=== PATIENT | female | born 1950 | race American Indian/Alaskan Native ===

== ENCOUNTER 2018-03-29 11:23 | Inpatient (IN) ==
--- NOTE | 2018-03-29 11:46 | Emergency Department Note ---
SOB HPI - General Chief Complaint: Shortness of Breath/Dyspnea Stated Complaint: SOB Time Seen by Provider: 03/29/18 11:24 Source: patient Mode of arrival: ambulatory Limitations: no limitations - History of Present Illness 67-year-old female presents with shortness of breath 1 month worsening in the last week. She is also had nausea and vomiting. She had diarrhea for a few days once or twice a day but has not had a bowel movement since Monday. These are dark stools because she takes iron. She has not been able to take her medications since around Monday because she gets nauseated and vomits. She states she has not been able to do anything because she is very short of breath. She states she has pain all over. She is diabetic. She apparently has a history of CHF when she was admitted here in the past. She has fever and chills that are subjective. - Related Data Home Medications Medication Instructions Recorded Confirmed Ergocalciferol (Vitamin D2) 50,000 unit PO MONTHLY 03/04/16 03/29/18 [Vitamin D2] Ferrous Sulfate 2 tablet PO BID 03/04/16 03/29/18 glipizide ER 5 mg tablet, extended 5 mg PO QDAY 04/18/16 03/29/18 release 24 hr lisinopril 5 mg tablet 5 mg PO QDAY 04/18/16 03/29/18 carvedilol 3.125 mg tablet 3.125 mg PO BID 09/13/16 03/29/18 gabapentin 300 mg capsule 300 mg PO TID 30 Days #270 09/13/16 03/29/18 insulin detemir (U-100) 100 46 unit SUB-Q QDAY ml 11/20/17 03/29/18 unit/mL subcutaneous solution insulin lispro (U-100) 100 unit/mL See Label Instructions SUB-Q 11/20/17 subcutaneous solution .COMPLEX Cetirizine [ZyrTEC] 10 mg PO DAILY 03/29/18 03/29/18 Magnesium Oxide 420 mg PO DAILY 03/29/18 03/29/18 Mometasone/Formoterol [Dulera 200 2 puff IH BID 03/29/18 03/29/18 Mcg/5 Mcg Inhaler] Omeprazole 20 mg PO DAILY 03/29/18 03/29/18 Sennosides [Senna] 8.6 mg PO DAILYP PRN 03/29/18 03/29/18 Topiramate [Topamax] 25 mg PO BID 03/29/18 03/29/18 metFORMIN [Glucophage] 500 mg PO BID 03/29/18 03/29/18 Previous Rx's Medication Instructions Recorded Accu-Chek 1 each FS ACHS strip 03/07/16 Acetaminophen [Tylenol] 650 mg PO Q6HP PRN #0 tab 03/07/16 Aspirin 81 mg PO DAILY tab.chew 03/07/16 Folic Acid/Vitamin B Comp W-C 1 tab PO DAILY tab 03/07/16 [Diatx] Nortriptyline [Pamelor] 20 mg PO HS cap 03/07/16 Simvastatin [Zocor] 20 mg PO HS tab 03/07/16 Allergies Allergy/AdvReac Type Severity Reaction Status Date / Time zolmitriptan [From Zomig] AdvReac Intermediate Vomiting Verified 03/29/18 11:23 Review of Systems All systems ED: reviewed and negative except as stated. Past Medical History - Past Medical History Medical history: Reports: CHF, DM, GERD, hyperlipidemia, hypertension, renal disease Psychiatric history: Reports: no psych history BUSINESS PARTNER history: Reports: non-contributory Surgical history ED: Reports: tonsillectomy Family history: Reports: non-contributory - Social History smoking status: Never smoker Physical Exam Limitations: no limitations General appearance: alert, in no apparent distress Head: atraumatic Eye: Present: normal appearance. Absent: conjunctival injection Neck: Present: normal inspection, full ROM Chest: Present: normal inspection, symmetric chest wall rise Respiratory: Present: normal lung sounds bilaterally Cardiovascular: Present: tachycardia, normal heart sounds Abdominal: Present: soft, tenderness, normal bowel sounds. Absent: distention, guarding, rebound, rigidity Abdominal tenderness: Present: diffuse, mild Extremities: Present: normal inspection, full ROM. Absent: pedal edema Neurological: Present: alert, oriented X3 Psychiatric: Present: normal affect, normal mood Skin: Present: warm, dry, intact Course Vital Signs Temperature 98.2 F 03/29/18 11:23 Pulse Rate 99 H 03/29/18 11:23 Respiratory Rate 20 03/29/18 11:23 Blood Pressure 149/95 03/29/18 11:23 Pulse Oximetry (%) 94 03/29/18 11:23 Temperature 98.2 F 03/29/18 11:23 Pulse Rate 93 H 03/29/18 13:44 Respiratory Rate 20 03/29/18 13:44 Blood Pressure 133/63 03/29/18 13:44 Pulse Oximetry (%) 97 03/29/18 13:44 Shortness of Breath/Dyspnea - MDM Narrative Medical decision making narrative: Urine shows positive nitrates moderate leukocytes and moderate blood. She also has been given insulin and she was not able to eat because she is very nauseated. She ate a few bites of her food. Due to elevated white count, elevated pro-calcitonin, and poor p.o. intake the patient will be admitted. - Lab Data Lab results reviewed: Yes I reviewed the patient's lab results. Result diagrams: 03/29/18 11:35 03/29/18 11:35 Lab Results 03/29/18 03/29/18 03/29/18 Range/Units 11:31 11:35 11:35 WBC 15.6 H (4.5-11.0) K/mcL RBC 4.52 (4.00-5.20) M/mcL Hgb 12.3 (12.0-15.0) g/dL Hct 41.0 (36.0-48.0) % MCV 90.8 (80.0-100.0) fL MCH 27.1 (26.0-34.0) pg MCHC 29.9 L (31.0-36.0) g/dL RDW 13.5 (11.5-14.5) % Plt Count 342 (140-440) K/mcL MPV 8.2 (7.4-10.4) fL Gran % 89.8 H (38.0-78.0) % Lymph % (Auto) 5.7 L (15.5-49.0) % [place] % (Auto) 4.1 (1.0-12.0) % Eos % (Auto) 0.3 (0.0-7.0) % Baso % (Auto) 0.1 (0.0-2.0) % Gran # 14.1 H (1.8-8.0) K/mcL Lymph # (Auto) 0.9 L (1.5-4.8) K/mcL [place] # (Auto) 0.6 (0.1-0.9) K/mcL Eos # (Auto) 0 (0.0-0.7) K/mcL Baso # (Auto) 0 (0.0-0.3) K/mcL VBG Lactic Acid (0.5-2.2) mmol/L Sodium 134 (133-145) mmol/L Potassium 4.6 (3.3-5.1) mmol/L Chloride 95 L (96-108) mmol/L Carbon Dioxide 22 (22-30) mmol/L Anion Gap 17.0 H (8-16) BUN 19 (8-23) mg/dl Creatinine 1.4 H (0.6-1.1) mg/dl GFR Calculation 39 Glucose 375 H (70-105) mg/dL Calcium 8.9 (8.6-10.4) mg/dl Total Bilirubin 1.3 H (0.0-1.0) mg/dL AST 12 (0-37) U/l ALT 11 (0-40) U/l Alkaline Phosphatase 145 H (39-117) U/L Troponin T (0-0.03) ng/ml NT-Pro-B Natriuret Pep 1210.0 H (0-125) pg/ml Total Protein 8.3 (5.9-8.4) gm/dL Albumin 3.8 (3.2-5.2) gm/dL Globulin 4.5 H (2.2-3.7) gm/dL Albumin/Globulin Ratio 0.8 L (1.0-2.3) Procalcitonin 2.40 (<0.10) ng/mL Urine Color Urine Appearance Urine pH (5.0-9.0) Ur Specific [place] (1.000-1.035) Urine Protein (NEG) mg/dL Urine Glucose (UA) (NEG) mg/dL Urine Ketones (NEG) mg/dL Urine Occult Blood (<0.03) mg/dL Urine Nitrate (NEG) Urine Bilirubin (NEG) mg/dL Urine Urobilinogen (NEG) mg/dL Ur Leukocyte Esterase (NEG) /uL Urine RBC (0-1) /hpf Urine WBC (0-4) /hpf Ur Squamous Epith Cells (0-4) /hpf Urine Bacteria (0) /hpf Ur Culture Indicated? 03/29/18 03/29/18 03/29/18 Range/Units 11:35 12:50 13:16 WBC (4.5-11.0) K/mcL RBC (4.00-5.20) M/mcL Hgb (12.0-15.0) g/dL Hct (36.0-48.0) % MCV (80.0-100.0) fL MCH (26.0-34.0) pg MCHC (31.0-36.0) g/dL RDW (11.5-14.5) % Plt Count (140-440) K/mcL MPV (7.4-10.4) fL Gran % (38.0-78.0) % Lymph % (Auto) (15.5-49.0) % [place] % (Auto) (1.0-12.0) % Eos % (Auto) (0.0-7.0) % Baso % (Auto) (0.0-2.0) % Gran # (1.8-8.0) K/mcL Lymph # (Auto) (1.5-4.8) K/mcL [place] # (Auto) (0.1-0.9) K/mcL Eos # (Auto) (0.0-0.7) K/mcL Baso # (Auto) (0.0-0.3) K/mcL VBG Lactic Acid 1.2 (0.5-2.2) mmol/L Sodium (133-145) mmol/L Potassium (3.3-5.1) mmol/L Chloride (96-108) mmol/L Carbon Dioxide (22-30) mmol/L Anion Gap (8-16) BUN (8-23) mg/dl Creatinine (0.6-1.1) mg/dl GFR Calculation Glucose (70-105) mg/dL Calcium (8.6-10.4) mg/dl Total Bilirubin (0.0-1.0) mg/dL AST (0-37) U/l ALT (0-40) U/l Alkaline Phosphatase (39-117) U/L Troponin T < 0.01 (0-0.03) ng/ml NT-Pro-B Natriuret Pep (0-125) pg/ml Total Protein (5.9-8.4) gm/dL Albumin (3.2-5.2) gm/dL Globulin (2.2-3.7) gm/dL Albumin/Globulin Ratio (1.0-2.3) Procalcitonin (<0.10) ng/mL Urine Color Yellow Urine Appearance Cloudy Urine pH 5.0 (5.0-9.0) Ur Specific [place] 1.021 (1.000-1.035) Urine Protein 100 A (NEG) mg/dL Urine Glucose (UA) >=500 A (NEG) mg/dL Urine Ketones 5/tr A (NEG) mg/dL Urine Occult Blood 0.03 A (<0.03) mg/dL Urine Nitrate Neg (NEG) Urine Bilirubin Neg (NEG) mg/dL Urine Urobilinogen 2.0 A (NEG) mg/dL Ur Leukocyte Esterase 250 A (NEG) /uL Urine RBC 7 H (0-1) /hpf Urine WBC > 182 H (0-4) /hpf Ur Squamous Epith Cells 2 (0-4) /hpf Urine Bacteria Few A (0) /hpf Ur Culture Indicated? Yes - Radiology Data Radiology results reviewed: Yes I reviewed the patient's radiology results. Negative chest - EKG Data EKG attestation: Yes I reviewed and interpreted this EKG. EKG results narrative: No evidence of acute abnormality Disposition Pt seen by CIRCULATION SUPERVISOR/PA only: No Clinical Impression: UTI (urinary tract infection), Vomiting Disposition: Xfer As Outpt/Obs ([facility]) Condition: Fair Referrals: Nicholas Albert MD [Primary Care Provider] -
--- NOTE | 2018-03-29 11:58 | XRay Report ---
CLINICAL INFORMATION: Cough and shortness of breath COMPARISON: 10/19/2017 FINDINGS: The heart size, mediastinum and pulmonary vessels are unremarkable. The lungs are clear. There are no effusions. The bones and soft tissues are within normal limits. IMPRESSION: Normal chest. Interpreted and Authenticated by: Rayshawn Guadalupe 03/29/18
[2018-03-29 12:02] LABS: Basophils # (Auto) 0 K/mcL (0.0-0.3); Basophils % (Auto) 0.1 % (0.0-2.0); Eosinophils # (Auto) 0 K/mcL (0.0-0.7); Eosinophils % (Auto) 0.3 % (0.0-7.0); Granulocytes % (Auto) 89.8 % (38.0-78.0); Lymphocytes # (Auto) 0.9 K/mcL (1.5-4.8); Lymphocytes % (Auto) 5.7 % (15.5-49.0); Mean Cell Volume 90.8 fL (80.0-100.0); Mean Corpuscular HGB Conc 29.9 g/dL (31.0-36.0); Mean Corpuscular Hemoglobin 27.1 pg (26.0-34.0); Monocytes # (Auto) 0.6 K/mcL (0.1-0.9); Monocytes % (Auto) 4.1 % (1.0-12.0); Platelet Count 342 K/mcL (140-440); RBC 4.52 M/mcL (4.00-5.20); Red Cell Distribution Width 13.5 % (11.5-14.5)
[2018-03-29] MEDS ORDERED: METOCLOPRAMIDE 10 MG/2 ML VIAL IV ONE (12:25)
[2018-03-29 12:27] LABS: ALT/SGPT 11 U/l (0-40); Albumin 3.8 gm/dL (3.2-5.2); Albumin/Globulin Ratio 0.8 (1.0-2.3); Alkaline Phosphatase 145 U/L (39-117); Blood Urea Nitrogen 19 mg/dl (8-23)
[2018-03-29] MEDS ORDERED: INSULIN REGULAR, HUMAN 1 UNIT/0.01 ML UNIT SQ ONE ×2 (12:42→13:07)
[2018-03-29] MEDS ORDERED: ONDANSETRON 4 MG/2 ML VIAL IV ONE (13:07)
[2018-03-29] MEDS ORDERED: cefTRIAXone 1 GM VIAL IV ONE (13:07)
[2018-03-29] MEDS ORDERED: 0.9 % SODIUM CHLORIDE 250 ML IV ONE (13:28)
[2018-03-29 14:02] LABS: Appearance,Urine CLOUDY; Bacteria,Urine FEW /hpf (0); Bilirubin,Urine NEG (NEG); Color,Urine YELLOW; Glucose,Urine (UA) >=500 mg/dL (NEG); Leukocyte Esterase,Urine 250 /uL (NEG); Protein,Urine 100 mg/dL (NEG); Specific Gravity,Urine 1.021 (1.000-1.035); Urine Blood 0.03 mg/dL (<0.03); Urine RBC 7 /hpf (0-1); Urine Squamous Epithelial Cell 2 /hpf (0-4); Urine WBC > 182 /hpf (0-4)
--- NOTE | 2018-03-29 15:29 | Internal Med History&Physical ---
Medical - H&P: HPI Patient information: Note initiated : 03/29/18 at 3:26 pm Service Date, if different from initiated Date: [] Patient: Lauren Maria a 67 y/o F admitted on for Shortness of breath. Chief Complaint: Dyspnea, nausea, vomiting, fever, chills History of present illness: Ms. Maria is a 67 year old F with a history of type 2 diabetes, CK D, hypercholesterolemia, congestive heart failure who presents with dyspnea as well as nausea, vomiting and abdominal pain. Patient reports for about the last month she's been having some trouble breathing. There has worsened since Monday. In addition during this time she' s had nausea with vomiting. She is throwing up her medications as she takes them, she is unable to keep food down. She's generally been able to keep down water and low but of other liquids. During this time she's felt feverish, has also had cold sweats. She is under several blankets, even though it was quite warm outside in order to stave off chills yesterday. The patient comes to the emergency department. Evaluation reveals white count 15,000, she had a pulse in the 90s, times respiratory rate of 33. Found to have significant pyuria and bacteriuria and is being admitted for treatment of acute cystitis. She meets criteria for sepsis with systemic inflammatory response syndrome and known infection. Her lactate is normal, this is not severe sepsis. Patient's dyspnea is noted been going on for about a month. She apparently has a diagnosis of congestive heart failure and had an echocardiogram done at [place] several years ago. Unknown what her ejection fraction is. Her PCP is arranging an echocardiogram currently. Patient states she was recently diagnosed with allergies about 3 weeks ago, it was thought that might explain her shortness of breath. She's had a cough, last few days it's been productive sputum, prior to that is nonproductive. For the last few months, she's been getting short of breath when she lays down, is now sleeping on 3 pillows, when she used to sleep on 1. She's noted some very mild lower extremity edema. She' s no history of coronary disease, as had no chest pains. She has had some pain in the left neck which radiates across the clavicular area down into her right chest as well as from her left ear down crossed her neck into her back. These do not appear to be exertionally related. 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 Her mother and daughter both had diabetes and ESRD and were on dialysis, both of whom are . Social history: She has never smoked and does not consume alcohol. Medical - H&P: Meds Home Medications Medication Instructions Recorded Confirmed Type Ergocalciferol (Vitamin D2) 50,000 unit PO MONTHLY 03/04/16 03/29/18 History [Vitamin D2] Ferrous Sulfate 2 tablet PO BID 03/04/16 03/29/18 History Accu-Chek 1 each FS ACHS strip 03/07/16 03/29/18 Rx Acetaminophen [Tylenol] 650 mg PO Q6HP PRN #0 tab 03/07/16 03/29/18 Rx Aspirin 81 mg PO DAILY tab.chew 03/07/16 03/29/18 Rx Folic Acid/Vitamin B Comp W-C 1 tab PO DAILY tab 03/07/16 03/29/18 Rx [Diatx] Nortriptyline [Pamelor] 20 mg PO HS cap 03/07/16 03/29/18 Rx Simvastatin [Zocor] 20 mg PO HS tab 03/07/16 03/29/18 Rx glipizide ER 5 mg tablet, extended 5 mg PO QDAY 04/18/16 03/29/18 History release 24 hr lisinopril 5 mg tablet 5 mg PO QDAY 04/18/16 03/29/18 History carvedilol 3.125 mg tablet 3.125 mg PO BID 09/13/16 03/29/18 History gabapentin 300 mg capsule 300 mg PO TID 30 Days #270 09/13/16 03/29/18 History insulin detemir (U-100) 100 46 unit SUB-Q QDAY ml 11/20/17 03/29/18 History unit/mL subcutaneous solution Cetirizine [ZyrTEC] 10 mg PO DAILY 03/29/18 03/29/18 History Insulin Aspart [Novolog Flexpen] 16 unit SQ AC 03/29/18 03/29/18 History Insulin Aspart [Novolog Flexpen] 20 unit SQ BID 03/29/18 03/29/18 History Magnesium Oxide 420 mg PO DAILY 03/29/18 03/29/18 History Mometasone/Formoterol [Dulera 200 2 puff IH BID 03/29/18 03/29/18 History Mcg/5 Mcg Inhaler] Omeprazole 20 mg PO DAILY 03/29/18 03/29/18 History Sennosides [Senna] 8.6 mg PO DAILYP PRN 03/29/18 03/29/18 History Topiramate [Topamax] 25 mg PO BID 03/29/18 03/29/18 History metFORMIN [Glucophage] 500 mg PO BID 03/29/18 03/29/18 History Allergies Allergy/AdvReac Type Severity Reaction Status Date / Time zolmitriptan [From Zomig] AdvReac Intermediate Vomiting Verified 03/29/18 11:23 Medical - H&P: Exam - Constitutional Vitals: Vital Signs Temp Pulse Resp BP Pulse Ox 03/29/18 15:12 20 03/29/18 13:44 93 H 20 133/63 97 03/29/18 13:28 93 H 20 133/63 97 03/29/18 13:01 93 H 20 121/65 95 03/29/18 12:47 96 H 33 H 118/87 96 03/29/18 12:31 92 H 20 118/72 94 03/29/18 12:16 94 H 19 131/62 94 03/29/18 12:01 91 H 25 H 130/72 93 03/29/18 11:50 92 H 33 H 130/70 96 03/29/18 11:46 92 H 27 H 130/70 94 03/29/18 11:44 95 H 149/95 95 03/29/18 11:23 98.2 F 99 H 20 149/95 94 - Head Head exam: Present: atraumatic, normocephalic - Eye Eye exam: Present: EOMI, PERRL. Absent: conjunctival injection, scleral icterus - ENT ENT exam: Present: mucous membranes dry, normal external ear exam, normal oropharynx - Neck Neck exam: Present: full ROM. Absent: lymphadenopathy, meningismus, thyromegaly - Respiratory Respiratory exam: Present: CTAB. Absent: accessory muscle use, rales, rhonchi, wheezes - Cardiovascular Cardiovascular exam: Present: normal rate and rhythm. Absent: JVD, +S3, +S4, systolic murmur - Expanded Cardiovascular Exam Peripheral pulses: 2+: carotid (L), carotid (R), dorsalis pedis (L), dorsalis pedis (R), radial (L), radial (R) - GI/Abdominal GI/Abdominal exam: Present: normal bowel sounds, soft, tenderness (R>LLQ and suprapubic, mild-moderate). Absent: distended, guarding, rebound, rigid - Extremities Exam Extremities exam: Present: full ROM, pedal edema (trace). Absent: calf tenderness, joint swelling - Back Exam Back exam: Absent: CVA tenderness (L), CVA tenderness (R) - Neurological Exam Neurological exam: Present: alert, CN II-XII intact, oriented X3 - Expanded Neurological Exam Sensory exam: lower extremity light touch: Abnormal Left, Abnormal Right ( decreased) Neuro motor strength exam: LUE: 5, RUE: 5, LLE: 5, RLE: 5 Coma Scale Eye Opening: Spontaneous Coma Scale Motor Response: Obeys Commands Coma Scale Verbal Response: Oriented Coma Scale Total: 15 - Psychiatric Psychiatric exam: Present: normal affect, normal mood - Skin Skin exam: Present: normal color. Absent: cyanosis, diaphoretic Medical - H&P: Reslt - Labs CBC & Chem 7: 03/29/18 11:35 03/29/18 11:35 Labs: Short CBC 03/29/18 Range/Units 11:35 WBC 15.6 H (4.5-11.0) K/mcL Hgb 12.3 (12.0-15.0) g/dL Hct 41.0 (36.0-48.0) % Plt Count 342 (140-440) K/mcL BMP 03/29/18 11:35 Sodium 134 Potassium 4.6 Chloride 95 L Carbon Dioxide 22 BUN 19 Creatinine 1.4 H Glucose 375 H Calcium 8.9 Cardiac Enzymes 03/29/18 Range/Units 11:35 Troponin T < 0.01 (0-0.03) ng/ml Liver Function 03/29/18 Range/Units 11:35 Total Bilirubin 1.3 H (0.0-1.0) mg/dL AST 12 (0-37) U/l ALT 11 (0-40) U/l Alkaline Phosphatase 145 H (39-117) U/L Albumin 3.8 (3.2-5.2) gm/dL Urine 03/29/18 Range/Units 12:50 Urine Color Yellow Urine Appearance Cloudy Urine pH 5.0 (5.0-9.0) Ur Specific [place] 1.021 (1.000-1.035) Urine Protein 100 A (NEG) mg/dL Urine Glucose (UA) >=500 A (NEG) mg/dL - EKG Data -: EKG Reviewed by Myself (NSR, LAFB, non-specific inferior T-wave changes, no acute ST changes) - Imaging and Cardiology Chest x-ray Status: image reviewed by me Additional comments: FINDINGS: The heart size, mediastinum and pulmonary vessels are unremarkable. The lungs are clear. There are no effusions. The bones and soft tissues are within normal limits. IMPRESSION: Normal chest. Medical - H&P: A/P (1) Sepsis Current visit: Yes Status: Acute (2) Acute cystitis without hematuria Current visit: Yes Status: Acute (3) Dyspnea Current visit: Yes Status: Acute (4) Chronic kidney disease (CKD), stage III (moderate) Current visit: Yes Status: Chronic (5) Diabetes 1.5, managed as type 2 Current visit: No Status: Chronic - Narrative A/P Narrative: 67-year-old female presenting with fevers, chills, nausea, vomiting, dyspnea, found to have acute cystitis, meeting sepsis criteria with systemic inflammatory response syndrome. Sepsis. Not severe sepsis, lactate is normal. Source is urinary tract, suspected acute cystitis. Plan: Inpatient admission, continue antibiotics, follow-up cultures, IV fluids. Acute cystitis. Apparently the patient did have an abnormal urine analysis about a week ago was told that it didn't need to be treated. Now she has systemic symptoms as well as leukocytosis. Plan: As above, antibiotics, fluids, follow cultures. Anti-emetics, clear liquid diet and advance as tolerated Dyspnea. Unclear etiology. She does not appear to be in congestive heart failure on my examination, she does have trace edema in the distal extremities, however JVP is normal, she has no rales. Her acute dyspnea may be related to her infection, and has improved with fluids and antibiotics in the emergency department. Plan: Further workup per her outpatient physician. Chronic kidney disease, stage III. Most recent creatinine 1.2, creatinine at 1.4. Plan: [place] dose medications, follow renal function. Type 2 diabetes mellitus. Patient's not been taking insulin as she was not able to reliably keep food down. Hyperglycemic upon arrival. She is on metformin as well as insulins at home. Plan: Hold metformin with acute hospitalization, give lower dose of long-acting insulin, cover with sliding scale insulin for now. CODE STATUS: Full code.
[2018-03-29] MEDS ORDERED: ONDANSETRON 4 MG/2 ML VIAL IV PRN (16:08)
[2018-03-29] MEDS ORDERED: DEXTROSE 31 GM ORAL.SUSP PO PRN (16:08)
[2018-03-29] MEDS ORDERED: 0.9 % SODIUM CHLORIDE 1,000 ML IV SCH (16:08)
[2018-03-29] MEDS ORDERED: DEXTROSE 50% 50 ML VIAL IV PRN (16:08)
--- NOTE | 2018-03-29 16:52 | Emergency Department Note ---
ED Note Addendum Note Addendum: I saw this patient with Marisela Matos PA-C. I agree with her evaluation management documentation. Specifically was involved with the decision to admit I reviewed her past medical history. Because of her intractable nausea vomiting and overall fragile health, in the setting of a UTI with possible Sirs versus sepsis I do think she needs come in the hospital.
[2018-03-29] MEDS: INSULIN LISPRO 1 UNIT/0.01 ML UNIT SQ SCH ×2 (17:09→21:22)
[2018-03-29] MEDS: CARVEDILOL 3.125 MG TABLET PO SCH (17:10)
[2018-03-29] MEDS: ACETAMINOPHEN 325 MG TABLET PO PRN (20:05)
[2018-03-29] MEDS: NORTRIPTYLINE 10 MG CAPSULE PO SCH (21:15)
[2018-03-29] MEDS: GABAPENTIN 300 MG CAPSULE PO SCH (21:15)
[2018-03-29] MEDS: SIMVASTATIN 20 MG TABLET PO SCH (21:15)
[2018-03-29] MEDS: TOPIRAMATE 25 MG TABLET PO SCH (21:16)
[2018-03-29] MEDS: Mometasone/Formoterol [Dulera] 200 Mcg/5 Mcg Inhaler INH SCH (21:17)
[2018-03-29] MEDS: 0.9 % SODIUM CHLORIDE 10 ML SYRINGE IV SCH (21:24)
[2018-03-30] MEDS: 0.9 % SODIUM CHLORIDE 10 ML SYRINGE IV SCH ×3 (05:24→20:06)
[2018-03-30 06:41] LABS: Mean Cell Volume 93.5 fL (80.0-100.0); Mean Corpuscular HGB Conc 32.9 g/dL (31.0-36.0); Mean Corpuscular Hemoglobin 30.8 pg (26.0-34.0); Platelet Count 271 K/mcL (140-440); RBC 3.71 M/mcL (4.00-5.20); Red Cell Distribution Width 13.9 % (11.5-14.5)
[2018-03-30 07:52] LABS: Blood Urea Nitrogen 20 mg/dl (8-23)
[2018-03-30] MEDS: INSULIN LISPRO 1 UNIT/0.01 ML UNIT SQ SCH ×4 (08:07→20:04)
[2018-03-30] MEDS: OMEPRAZOLE 20 MG CAPSULE PO SCH (08:08)
[2018-03-30] MEDS: ACETAMINOPHEN 325 MG TABLET PO PRN ×2 (08:08→20:06)
[2018-03-30] MEDS ORDERED: INSULIN GLARGINE, HUMAN 1 UNIT/0.01 ML SQ SCH (09:00)
[2018-03-30] MEDS: cefTRIAXone 1 GM VIAL IV SCH (09:07)
[2018-03-30] MEDS: ENOXAPARIN 30 MG/0.3 ML SYRINGE SQ SCH (09:17)
[2018-03-30] MEDS: CETIRIZINE 10 MG TABLET PO SCH (09:18)
[2018-03-30] MEDS: GABAPENTIN 300 MG CAPSULE PO SCH ×3 (09:18→20:05)
[2018-03-30] MEDS: CARVEDILOL 3.125 MG TABLET PO SCH ×2 (09:18→16:55)
[2018-03-30] MEDS: FOLIC ACID/VITAMIN B COMP W-C 1 TAB TABLET PO SCH (09:18)
[2018-03-30] MEDS: TOPIRAMATE 25 MG TABLET PO SCH ×2 (09:18→20:05)
[2018-03-30] MEDS: ASPIRIN 81 MG TAB.CHEW PO SCH (09:18)
[2018-03-30] MEDS: Mometasone/Formoterol [Dulera] 200 Mcg/5 Mcg Inhaler INH SCH ×2 (09:19→20:05)
[2018-03-30 11:28] LABS: Eosinophils % (Manual) 1 % (0-7); Lymphocytes % 15 % (15-49); Monocytes % (Manual) 5 % (1-12); Platelet Estimate NORMAL (NORMAL); RBC Morphology NORMAL (NORMAL); Segmented Neutrophils % 79 % (38-78)
[2018-03-30] MEDS ORDERED: cefTRIAXone 1 GM in DEXTROSE 5% IN WATER 50 ML IV SCH (13:00)
--- NOTE | 2018-03-30 18:51 | Internal Med Progress Note ---
Medical - PN: Subj Patient information: Note initiated : 03/30/18 at 6:48 pm Service Date, if different from initiated Date: [] Patient: Lauren Maria 67 y/o F admitted on 03/29/18 for SOB, Acute Cystitis , Sepsis. Chief Complaint: f/u Sepsis, UTI Interval history: 03/29 Patient reports for about the last month she's been having some trouble breathing. There has worsened since Monday. In addition during this time she' s had nausea with vomiting. She is throwing up her medications as she takes them, she is unable to keep food down. She's generally been able to keep down water and low but of other liquids. During this time she's felt feverish, has also had cold sweats. She is under several blankets, even though it was quite warm outside in order to stave off chills yesterday. The patient comes to the emergency department. Evaluation reveals white count 15,000, she had a pulse in the 90s, times respiratory rate of 33. Found to have significant pyuria and bacteriuria and is being admitted for treatment of acute cystitis. She meets criteria for sepsis with systemic inflammatory response syndrome and known infection. Her lactate is normal, this is not severe sepsis. 03/30 Patient feels better this afternoon. Able to keep most food down. Appetite starting to nut picker. Blood cultures positive for gram-negative rods at 5:00 this morning. Urine culture positive for gram-negative rods Pertinent ROS: No fever, no chills. Some back pain, lower lumbar area. Nausea improved. - Constitutional Vitals: Vital Signs Temp Pulse Resp BP Pulse Ox 98.4 F 81 24 H 109/63 98 03/30/18 18:41 03/30/18 18:41 03/30/18 18:41 03/30/18 18:41 03/30/18 18:41 Period Temp Pulse Resp BP Sys/Flowers Pulse Ox Last 24 Hr 97.5 F-98.4 F 78-85 20-28 107-129/63-79 94-98 Intake and Output 03/30/18 03/30/18 03/30/18 05:59 13:59 21:59 Intake Total 600 / 600 1320 / 1320 870 / 870 Output Total 200 / 200 350 / 350 525 / 525 Balance 400 / 400 970 / 970 345 / 345 Weight 260 lb 8 oz Patient Weight 03/31/18 05:59 Weight 260 lb 8 oz Intake & Output: Intake & Output 03/30/18 03/30/18 03/30/18 05:59 13:59 21:59 Intake Total 600 / 600 1320 / 1320 870 / 870 Output Total 200 / 200 350 / 350 525 / 525 Balance 400 / 400 970 / 970 345 / 345 Weight 260 lb 8 oz Intake: IV 1000 / 1000 Oral 600 / 600 320 / 320 870 / 870 Output: Void Amount 200 / 200 350 / 350 525 / 525 Other: Meal Lunch Dinner Percent of Meal Consumed 75% 50% Feeding Ability Independent # Voids 2 1 Exam: Enteral: In bed, no acute distress Chest: Clear, no rales, unlabored Cardiovascular: Regular, no edema Abdomen: Soft, mild suprapubic and right lower quadrant tenderness without guarding or rebound. Improved. Musculoskeletal: No CVA tenderness. Mild tenderness to palpation over the lumbosacral region Neuro: Alert, oriented 3 Medical - PN: Obj Da - Labs CBC & Chem 7: 03/30/18 05:05 03/30/18 05:05 Labs: Abnormal Lab Results 03/30/18 03/30/18 03/29/18 05:05 05:05 12:50 WBC 12.9 H RBC 3.71 L Hgb 11.4 L Hct 34.7 L MCHC Gran % Lymph % (Auto) Gran # Lymph # (Auto) Seg Neutrophils % 79 H Chloride Anion Gap Creatinine 1.3 H Glucose 201 H Calcium 8.3 L Total Bilirubin Alkaline Phosphatase NT-Pro-B Natriuret Pep Globulin Albumin/Globulin Ratio Urine Protein 100 A Urine Glucose (UA) >=500 A Urine Ketones 5/tr A Urine Occult Blood 0.03 A Urine Urobilinogen 2.0 A Ur Leukocyte Esterase 250 A Urine RBC 7 H Urine WBC > 182 H Urine Bacteria Few A 03/29/18 03/29/18 11:35 11:35 WBC 15.6 H RBC Hgb Hct MCHC 29.9 L Gran % 89.8 H Lymph % (Auto) 5.7 L Gran # 14.1 H Lymph # (Auto) 0.9 L Seg Neutrophils % Chloride 95 L Anion Gap 17.0 H Creatinine 1.4 H Glucose 375 H Calcium Total Bilirubin 1.3 H Alkaline Phosphatase 145 H NT-Pro-B Natriuret Pep 1210.0 H Globulin 4.5 H Albumin/Globulin Ratio 0.8 L Urine Protein Urine Glucose (UA) Urine Ketones Urine Occult Blood Urine Urobilinogen Ur Leukocyte Esterase Urine RBC Urine WBC Urine Bacteria Microbiology 03/29/18 12:50 Urine Culture - Preliminary Urine - Clean Void Mid-Stream Gram negative bacillus 03/29/18 13:23 Blood Culture - Preliminary Blood Gram negative bacillus 03/29/18 13:16 Blood Culture - Preliminary Blood Gram negative bacillus Meds: Medications Acetaminophen (Tylenol) 650 mg PO Q6HP PRN PRN Reason: PAIN/FEVER > 101 Last Admin: 03/30/18 08:08 Dose: 650 mg Aspirin (Aspirin) 81 mg PO DAILY [facility] Last Admin: 03/30/18 09:18 Dose: 81 mg Carvedilol (Coreg) 3.125 mg PO BIDCC [facility] Last Admin: 03/30/18 16:55 Dose: 3.125 mg Ceftriaxone Sodium (Rocephin) 1 gm IV Q24H [facility] Last Admin: 03/30/18 09:07 Dose: 1 gm Cetirizine HCl (Zyrtec) 10 mg PO DAILY [facility] Last Admin: 03/30/18 09:18 Dose: 10 mg Dextrose (Dextrose 50%) 0 ml IV UD PRN PRN Reason: Hypoglycemia Diagnostic Test (Pha) (Accu-Chek) 1 each FS [facility] Last Admin: 03/30/18 16:57 Dose: 1 each Enoxaparin Sodium (Lovenox) 30 mg SQ DAILY [facility] Last Admin: 03/30/18 09:17 Dose: 30 mg Gabapentin (Neurontin) 300 mg PO TID [facility] Last Admin: 03/30/18 14:06 Dose: 300 mg Glucose (Insta-Glucose) 15 gm PO PRN PRN PRN Reason: Hypoglycemia Insulin Glargine (Lantus) 42 unit SQ DAILY [facility] Insulin Human Lispro (Humalog) 0 unit SQ [facility]; Protocol Last Admin: 03/30/18 16:54 Dose: 6 unit Multivit/Ca Carb/B Cmplx/FA/Prenat (Diatx) 1 tab PO DAILY [facility] Last Admin: 03/30/18 09:18 Dose: 1 tab Nortriptyline HCl (Pamelor) 20 mg PO HS [facility] Last Admin: 03/29/18 21:15 Dose: 20 mg Omeprazole (Prilosec) 20 mg PO ACB [facility] Last Admin: 03/30/18 08:08 Dose: 20 mg Ondansetron HCl (Zofran) 4 mg IV Q6HP PRN PRN Reason: Nausea And Vomiting Mometasone/Formoterol [Dulera] 200 Mcg/5 Mcg Inhaler 2 dose INH BID [facility] Last Admin: 03/30/18 09:19 Dose: Not Given Senna (Senokot) 1 tab PO DAILYP PRN PRN Reason: Constipation Simvastatin (Zocor) 20 mg PO HS [facility] Last Admin: 03/29/18 21:15 Dose: 20 mg Sodium Chloride (Saline Flush) 10 ml IV Q8 [facility] Last Admin: 03/30/18 14:06 Dose: 10 ml Topiramate (Topamax) 25 mg PO BID [facility] Last Admin: 03/30/18 09:18 Dose: 25 mg Medical - PN: A/P (1) Sepsis Status: Acute Current Visit: Yes (2) Bacteremia due to Gram-negative bacteria Status: Acute Current Visit: Yes (3) Acute cystitis without hematuria Status: Acute Current Visit: Yes (4) Dyspnea Status: Acute Current Visit: Yes (5) Chronic kidney disease (CKD), stage III (moderate) Status: Chronic Current Visit: Yes (6) Diabetes 1.5, managed as type 2 Status: Chronic Current Visit: No - Narrative A/P Narrative: 67-year-old female presenting with fevers, chills, nausea, vomiting, dyspnea, found to have acute cystitis, meeting sepsis criteria with systemic inflammatory response syndrome. Sepsis. Now with gram-negative bacteremia. Also gram-negative rods in urine, suspected source is urinary from acute cystitis. She does have some low back pain but no CVA tenderness, low suspicion of pyelonephritis. White count down to 12,000 today Plan: Continue with current antibiotics, follow-up cultures, adjust antibiotics as needed Gram-negative bacteremia. Suspected source is acute cystitis, also gram- negative rods and urine culture. Plan: Follow up final culture and sensitivity. When clinically improved, can convert to oral antibiotic and will treat for a total of 2 weeks. Acute cystitis. Source of sepsis and likely source of gram-negative rods on culture. Still suspect acute cystitis, not pyelonephritis. Slowly improving. Plan: Continue ceftriaxone as noted above, advance diet as tolerated. Dyspnea. Improved. Acutely and likely due to sepsis and gram-negative bacteremia. Plan: Further workup for chronic complaints per her outpatient physician. Chronic kidney disease, stage III. Most recent creatinine 1.2, creatinine at 1.4. Plan: Renally dose medications as needed, follow creatinine. Type 2 diabetes mellitus. Currently on decreased dose of Lantus and holding mealtime insulin just using sliding scale. Metformin and glipizide being held due to sepsis and variable oral intake. Plan: Continue with current regimen, adjust as her diet picks up.
[2018-03-30] MEDS: NORTRIPTYLINE 10 MG CAPSULE PO SCH (20:05)
[2018-03-30] MEDS: SIMVASTATIN 20 MG TABLET PO SCH (20:06)
[2018-03-30] MEDS: SENNOSIDES 1 TABLET PO PRN (20:06)
[2018-03-31] MEDS: 0.9 % SODIUM CHLORIDE 10 ML SYRINGE IV SCH ×3 (05:21→20:44)
[2018-03-31] MEDS: OMEPRAZOLE 20 MG CAPSULE PO SCH (07:18)
[2018-03-31] MEDS: CARVEDILOL 3.125 MG TABLET PO SCH ×2 (07:18→16:46)
[2018-03-31] MEDS: INSULIN LISPRO 1 UNIT/0.01 ML UNIT SQ SCH ×5 (07:26→20:57)
[2018-03-31] MEDS: INSULIN GLARGINE, HUMAN 1 UNIT/0.01 ML SQ SCH (07:27)
[2018-03-31 08:41] LABS: Basophils # (Auto) 0 K/mcL (0.0-0.3); Basophils % (Auto) 0.5 % (0.0-2.0); Eosinophils # (Auto) 0.2 K/mcL (0.0-0.7); Granulocytes % (Auto) 74.8 % (38.0-78.0); Lymphocytes # (Auto) 1.5 K/mcL (1.5-4.8); Mean Cell Volume 92.6 fL (80.0-100.0); Mean Corpuscular HGB Conc 33.2 g/dL (31.0-36.0); Mean Corpuscular Hemoglobin 30.7 pg (26.0-34.0); Monocytes # (Auto) 0.5 K/mcL (0.1-0.9); Monocytes % (Auto) 5.7 % (1.0-12.0); Platelet Count 300 K/mcL (140-440); RBC 3.81 M/mcL (4.00-5.20); Red Cell Distribution Width 13.8 % (11.5-14.5)
[2018-03-31] MEDS: FOLIC ACID/VITAMIN B COMP W-C 1 TAB TABLET PO SCH (08:50)
[2018-03-31] MEDS: CETIRIZINE 10 MG TABLET PO SCH (08:50)
[2018-03-31] MEDS: GABAPENTIN 300 MG CAPSULE PO SCH ×3 (08:50→20:42)
[2018-03-31] MEDS: TOPIRAMATE 25 MG TABLET PO SCH ×2 (08:50→20:44)
[2018-03-31] MEDS: ASPIRIN 81 MG TAB.CHEW PO SCH (08:50)
[2018-03-31] MEDS: ENOXAPARIN 30 MG/0.3 ML SYRINGE SQ SCH (08:51)
[2018-03-31] MEDS: cefTRIAXone 1 GM VIAL IV SCH (08:51)
[2018-03-31 09:12] LABS: Blood Urea Nitrogen 19 mg/dl (8-23)
[2018-03-31] MEDS: Mometasone/Formoterol [Dulera] 200 Mcg/5 Mcg Inhaler INH SCH ×2 (09:31→20:44)
--- NOTE | 2018-03-31 11:02 | Internal Med Progress Note ---
Medical - PN: Subj Patient information: Note initiated : 03/31/18 at 11:00 am Service Date, if different from initiated Date: [] Patient: Lauren Maria 67 y/o F admitted on 03/29/18 for SOB, Acute Cystitis , Sepsis. Chief Complaint: Follow-up cystitis, sepsis Interval history: 03/29 Patient reports for about the last month she's been having some trouble breathing. There has worsened since Monday. In addition during this time she' s had nausea with vomiting. She is throwing up her medications as she takes them, she is unable to keep food down. She's generally been able to keep down water and low but of other liquids. During this time she's felt feverish, has also had cold sweats. She is under several blankets, even though it was quite warm outside in order to stave off chills yesterday. The patient comes to the emergency department. Evaluation reveals white count 15,000, she had a pulse in the 90s, times respiratory rate of 33. Found to have significant pyuria and bacteriuria and is being admitted for treatment of acute cystitis. She meets criteria for sepsis with systemic inflammatory response syndrome and known infection. Her lactate is normal, this is not severe sepsis. 03/30 Patient feels better this afternoon. Able to keep most food down. Appetite starting to fern picker. Blood cultures positive for gram-negative rods at 5:00 this morning. Urine culture positive for gram-negative rods 03/31 Appetite is better, all of her breakfast today. No fevers, no chills. Blood cultures from admission, still awaiting identification of species. Follow-up blood cultures from yesterday remain no growth to date. Pertinent ROS: No fever, chills, nausea, dyspnea, chest pain, abdominal pain - Constitutional Vitals: Vital Signs Temp Pulse Resp BP Pulse Ox 97.5 F 73 18 111/76 93 03/31/18 07:40 03/31/18 04:00 03/31/18 07:40 03/31/18 07:40 03/31/18 07:40 Period Temp Pulse Resp BP Sys/Flowers Pulse Ox Last 24 Hr 97.4 F-98.4 F 73-81 16-28 93-111/54-76 93-98 Intake and Output 03/30/18 03/31/18 03/31/18 21:59 05:59 13:59 Intake Total 1420 / 1420 240 / 240 Output Total 525 / 525 700 / 700 250 / 250 Balance 895 / 895 -460 / -460 -250 / -250 Weight 260 lb 8 oz Intake & Output: Intake & Output 03/30/18 03/31/18 03/31/18 21:59 05:59 13:59 Intake Total 1420 / 1420 240 / 240 Output Total 525 / 525 700 / 700 250 / 250 Balance 895 / 895 -460 / -460 -250 / -250 Weight 260 lb 8 oz Intake: Oral 1420 / 1420 240 / 240 Output: Void Amount 525 / 525 700 / 700 250 / 250 Other: Meal Dinner Percent of Meal Consumed 50% # Voids 1 1 1 Exam: General: In no acute distress HEENT: Normocephalic, mucous membranes moist Neck: Supple Chest: Clear, unlabored Cardiovascular: Regular, no murmur, no edema Abdomen: Obese, soft, nontender Neuro: Alert, oriented to person, place, situation, moves all extremities equally, nonfocal Medical - PN: Obj Da - Labs CBC & Chem 7: 03/31/18 07:48 03/31/18 07:48 Labs: Abnormal Lab Results 03/31/18 03/31/18 03/30/18 07:48 07:48 05:05 WBC RBC 3.81 L Hgb 11.7 L Hct 35.3 L MCHC Gran % Lymph % (Auto) Gran # Lymph # (Auto) Seg Neutrophils % Chloride Anion Gap Creatinine 1.3 H 1.3 H Glucose 176 H 201 H Calcium 8.4 L 8.3 L Total Bilirubin Alkaline Phosphatase NT-Pro-B Natriuret Pep Globulin Albumin/Globulin Ratio Urine Protein Urine Glucose (UA) Urine Ketones Urine Occult Blood Urine Urobilinogen Ur Leukocyte Esterase Urine RBC Urine WBC Urine Bacteria 03/30/18 03/29/18 03/29/18 05:05 12:50 11:35 WBC 12.9 H RBC 3.71 L Hgb 11.4 L Hct 34.7 L MCHC Gran % Lymph % (Auto) Gran # Lymph # (Auto) Seg Neutrophils % 79 H Chloride 95 L Anion Gap 17.0 H Creatinine 1.4 H Glucose 375 H Calcium Total Bilirubin 1.3 H Alkaline Phosphatase 145 H NT-Pro-B Natriuret Pep 1210.0 H Globulin 4.5 H Albumin/Globulin Ratio 0.8 L Urine Protein 100 A Urine Glucose (UA) >=500 A Urine Ketones 5/tr A Urine Occult Blood 0.03 A Urine Urobilinogen 2.0 A Ur Leukocyte Esterase 250 A Urine RBC 7 H Urine WBC > 182 H Urine Bacteria Few A 03/29/18 11:35 WBC 15.6 H RBC Hgb Hct MCHC 29.9 L Gran % 89.8 H Lymph % (Auto) 5.7 L Gran # 14.1 H Lymph # (Auto) 0.9 L Seg Neutrophils % Chloride Anion Gap Creatinine Glucose Calcium Total Bilirubin Alkaline Phosphatase NT-Pro-B Natriuret Pep Globulin Albumin/Globulin Ratio Urine Protein Urine Glucose (UA) Urine Ketones Urine Occult Blood Urine Urobilinogen Ur Leukocyte Esterase Urine RBC Urine WBC Urine Bacteria Microbiology 03/29/18 12:50 Urine Culture - Preliminary Urine - Clean Void Mid-Stream Gram negative bacillus 03/29/18 13:23 Blood Culture - Preliminary Blood Gram negative bacillus 03/29/18 13:16 Blood Culture - Preliminary Blood Gram negative bacillus Meds: Medications Acetaminophen (Tylenol) 650 mg PO Q6HP PRN PRN Reason: PAIN/FEVER > 101 Last Admin: 03/30/18 20:06 Dose: 650 mg Aspirin (Aspirin) 81 mg PO DAILY [facility] Last Admin: 03/31/18 08:50 Dose: 81 mg Carvedilol (Coreg) 3.125 mg PO BIDCC [facility] Last Admin: 03/31/18 07:18 Dose: 3.125 mg Ceftriaxone Sodium (Rocephin) 1 gm IV Q24H [facility] Last Admin: 03/31/18 08:51 Dose: 1 gm Cetirizine HCl (Zyrtec) 10 mg PO DAILY [facility] Last Admin: 03/31/18 08:50 Dose: 10 mg Dextrose (Dextrose 50%) 0 ml IV UD PRN PRN Reason: Hypoglycemia Diagnostic Test (Pha) (Accu-Chek) 1 each FS ACHS [facility] Last Admin: 03/31/18 07:26 Dose: 1 each Enoxaparin Sodium (Lovenox) 30 mg SQ DAILY [facility] Last Admin: 03/31/18 08:51 Dose: 30 mg Gabapentin (Neurontin) 300 mg PO TID [facility] Last Admin: 03/31/18 08:50 Dose: 300 mg Glucose (Insta-Glucose) 15 gm PO PRN PRN PRN Reason: Hypoglycemia Insulin Glargine (Lantus) 42 unit SQ DAILY [facility] Last Admin: 03/31/18 07:27 Dose: 42 unit Insulin Human Lispro (Humalog) 0 unit SQ ACHS [facility]; Protocol Last Admin: 03/31/18 07:26 Dose: 2 unit Multivit/Ca Carb/B Cmplx/FA/Prenat (Diatx) 1 tab PO DAILY [facility] Last Admin: 03/31/18 08:50 Dose: 1 tab Nortriptyline HCl (Pamelor) 20 mg PO HS [facility] Last Admin: 03/30/18 20:05 Dose: 20 mg Omeprazole (Prilosec) 20 mg PO ACB [facility] Last Admin: 03/31/18 07:18 Dose: 20 mg Ondansetron HCl (Zofran) 4 mg IV Q6HP PRN PRN Reason: Nausea And Vomiting Mometasone/Formoterol [Dulera] 200 Mcg/5 Mcg Inhaler 2 dose INH BID [facility] Last Admin: 03/31/18 09:31 Dose: Not Given Senna (Senokot) 1 tab PO DAILYP PRN PRN Reason: Constipation Last Admin: 03/30/18 20:06 Dose: 1 tab Simvastatin (Zocor) 20 mg PO [facility] Last Admin: 03/30/18 20:06 Dose: 20 mg Sodium Chloride (Saline Flush) 10 ml IV Q8 [facility] Last Admin: 03/31/18 05:21 Dose: 10 ml Topiramate (Topamax) 25 mg PO BID [facility] Last Admin: 03/31/18 08:50 Dose: 25 mg Medical - PN: A/P (1) Sepsis Status: Acute Current Visit: Yes (2) Bacteremia due to Gram-negative bacteria Status: Acute Current Visit: Yes (3) Acute cystitis without hematuria Status: Acute Current Visit: Yes (4) Dyspnea Status: Acute Current Visit: Yes (5) Chronic kidney disease (CKD), stage III (moderate) Status: Chronic Current Visit: Yes (6) Diabetes 1.5, managed as type 2 Status: Chronic Current Visit: No - Narrative A/P Narrative: 67-year-old female presenting with fevers, chills, nausea, vomiting, dyspnea, found to have acute cystitis, meeting sepsis criteria with systemic inflammatory response syndrome. Sepsis, with gram-negative bacilli bacteremia. Also gram-negative rods in urine , suspected source is urinary from acute cystitis. White count now normalized. Surveillance blood cultures no growth. Plan: Continue with current antibiotics, once sensitivities are known, will change to oral regimen. Gram-negative bacteremia. Suspected source is acute cystitis, also gram- negative rods and urine culture. Plan: Follow up final cultures. We'll convert to oral antibiotics tomorrow, once sensitivities are known, plan to treat for a total of 2 weeks. Acute cystitis. Source of sepsis and likely source of gram-negative rods on culture. Suspect acute cystitis, not pyelonephritis. Continues to improve. Plan: Antibiotic management as noted. Dyspnea. Improved. Acutely and likely due to sepsis and gram-negative bacteremia. Plan: Further workup for chronic complaints per her outpatient physician. Chronic kidney disease, stage III. Most recent creatinine 1.2, creatinine at 1.3, stable. Plan: Renally dose medications as needed, follow creatinine. Type 2 diabetes mellitus. Currently on decreased dose of Lantus and holding mealtime insulin just using sliding scale. Metformin and glipizide being held due to sepsis and variable oral intake. Plan: Change back to usual dose of Lantus, usual dose of mealtime insulin along with sliding scale. Continue to hold metformin and glipizide during acute illness.
[2018-03-31] MEDS ORDERED: INSULIN LISPRO 1 UNIT/0.01 ML UNIT SQ SCH (17:00)
[2018-03-31] MEDS ORDERED: BISACODYL 10 MG SUPP.RECT PR PRN (20:26)
[2018-03-31] MEDS ORDERED: FLEETS ADULT ENEMA PR PRN (20:26)
[2018-03-31] MEDS ORDERED: MAGNESIUM HYDROXIDE 30 ML ORAL.SUSP PO PRN (20:26)
[2018-03-31] MEDS: SIMVASTATIN 20 MG TABLET PO SCH (20:42)
[2018-03-31] MEDS ORDERED: MAGNESIUM HYDROXIDE 30 ML ORAL.SUSP ONE (20:43)
[2018-03-31] MEDS: NORTRIPTYLINE 10 MG CAPSULE PO SCH (20:43)
[2018-03-31] MEDS: DOCUSATE SODIUM 100 MG CAPSULE PO SCH (22:14)
[2018-04-01] MEDS: 0.9 % SODIUM CHLORIDE 10 ML SYRINGE IV SCH (05:16)
[2018-04-01 06:07] LABS: Basophils # (Auto) 0 K/mcL (0.0-0.3); Basophils % (Auto) 0.6 % (0.0-2.0); Eosinophils # (Auto) 0.1 K/mcL (0.0-0.7); Eosinophils % (Auto) 1.7 % (0.0-7.0); Granulocytes % (Auto) 69.7 % (38.0-78.0); Lymphocytes # (Auto) 1.6 K/mcL (1.5-4.8); Lymphocytes % (Auto) 21.6 % (15.5-49.0); Mean Cell Volume 92.6 fL (80.0-100.0); Mean Corpuscular HGB Conc 33.2 g/dL (31.0-36.0); Mean Corpuscular Hemoglobin 30.7 pg (26.0-34.0); Monocytes # (Auto) 0.5 K/mcL (0.1-0.9); Monocytes % (Auto) 6.4 % (1.0-12.0); Platelet Count 317 K/mcL (140-440); RBC 3.72 M/mcL (4.00-5.20); Red Cell Distribution Width 13.8 % (11.5-14.5)
[2018-04-01 06:32] LABS: Blood Urea Nitrogen 18 mg/dl (8-23)
[2018-04-01] MEDS: OMEPRAZOLE 20 MG CAPSULE PO SCH (06:48)
[2018-04-01] MEDS: INSULIN LISPRO 1 UNIT/0.01 ML UNIT SQ SCH ×3 (07:20→11:47)
[2018-04-01] MEDS ORDERED: INSULIN LISPRO 1 UNIT/0.01 ML UNIT SQ SCH (07:30)
[2018-04-01] MEDS: ENOXAPARIN 30 MG/0.3 ML SYRINGE SQ SCH (08:23)
[2018-04-01] MEDS: DOCUSATE SODIUM 100 MG CAPSULE PO SCH (08:24)
[2018-04-01] MEDS: ASPIRIN 81 MG TAB.CHEW PO SCH (08:24)
[2018-04-01] MEDS: GABAPENTIN 300 MG CAPSULE PO SCH (08:24)
[2018-04-01] MEDS: CARVEDILOL 3.125 MG TABLET PO SCH (08:24)
[2018-04-01] MEDS: INSULIN GLARGINE, HUMAN 1 UNIT/0.01 ML SQ SCH (08:24)
[2018-04-01] MEDS: FOLIC ACID/VITAMIN B COMP W-C 1 TAB TABLET PO SCH (08:24)
[2018-04-01] MEDS: CETIRIZINE 10 MG TABLET PO SCH (08:24)
[2018-04-01] MEDS: TOPIRAMATE 25 MG TABLET PO SCH (08:25)
[2018-04-01] MEDS: Mometasone/Formoterol [Dulera] 200 Mcg/5 Mcg Inhaler INH SCH (08:25)
[2018-04-01] MEDS: SENNOSIDES 1 TABLET PO PRN (08:31)
[2018-04-01] MEDS: cefTRIAXone 1 GM VIAL IV SCH (08:31)
--- NOTE | 2018-04-01 11:12 | Discharge Summary ---
Medical - DS: Prov Patient information: Note initiated : 04/01/18 at 11:07 am Patient: Lauren Maria 67 y/o F admitted on 03/29/18 for SOB, Acute Cystitis , Sepsis. Date of admission: 03/29/18 15:49 Discharge date: 04/01/18 Primary care physician: Nicholas Albert Admitting clinician: Rosa Huizar Consults: 03/29/18 14:19 Consult to Physician [CONS] Stat Comment: Consulting Provider: Rosa Huizar Reason For Exam: Physician to Consult Discharging clinician: Rosa Huizar Medical - DS: Meds - Discharge Medications Prescriptions: Ciprofloxacin [Cipro] 500 mg PO BID #20 tab Active and Home Medications: Home Medications Ergocalciferol (Vitamin D2) [Vitamin D2] 50,000 unit PO MONTHLY 03/04/16 [ History Confirmed 03/29/18 Last Taken 02/26/16] Ferrous Sulfate 2 tablet PO BID 03/04/16 [History Confirmed 03/29/18 Last Taken 03/22/18 08:00] Accu-Chek 1 each FS ACHS strip 03/07/16 [Rx Confirmed 03/29/18 Last Taken Unknown] Acetaminophen [Tylenol] 650 mg PO Q6HP PRN #0 tab 03/07/16 [Rx Confirmed Last Taken 03/22/18 08:00] Aspirin 81 mg PO DAILY tab.chew 03/07/16 [Rx Confirmed 03/29/18 Last Taken 08:00] Nortriptyline [Pamelor] 20 mg PO HS cap 03/07/16 [Rx Confirmed 03/29/18 Last Taken Unknown] Simvastatin [Zocor] 20 mg PO HS tab 03/07/16 [Rx Confirmed 03/29/18 Last Taken Unknown] glipizide ER 5 mg tablet, extended release 24 hr 5 mg PO QDAY 04/18/16 [History Confirmed 03/29/18 Last Taken 03/22/18 08:00] lisinopril 5 mg tablet 5 mg PO QDAY 04/18/16 [History Confirmed 03/29/18 Last Taken 03/22/18 08:00] carvedilol 3.125 mg tablet 3.125 mg PO BID 09/13/16 [History Confirmed 03/29/18 Last Taken 03/22/18 08:00] gabapentin 300 mg capsule 900 mg PO TID 30 Days #270 09/13/16 [History Confirmed 03/30/18 Last Taken 03/22/18 08:00] insulin detemir (U-100) 100 unit/mL subcutaneous solution 42 unit SUB-Q HS ml 11/20/17 [History Confirmed 03/30/18 Last Taken 03/22/18 08:00] Insulin Aspart [Novolog Flexpen] 16 unit SQ DAILY 03/29/18 [History Confirmed Last Taken 03/22/18 08:00] Insulin Aspart [Novolog Flexpen] 20 unit SQ BID 03/29/18 [History Confirmed 10/15 Last Taken 03/22/18 12:00] Magnesium Oxide 420 mg PO DAILY 03/29/18 [History Confirmed 03/29/18 Last Taken 03/22/18 08:00] Mometasone/Formoterol [Dulera 200 Mcg/5 Mcg Inhaler] 2 puff IH BID 03/29/18 [ History Confirmed 03/29/18 Last Taken 03/22/18 08:00] Omeprazole 20 mg PO DAILY 03/29/18 [History Confirmed 03/29/18 Last Taken Unknown] Sennosides [Senna] 8.6 mg PO DAILYP PRN 03/29/18 [History Confirmed 03/29/18 Last Taken Unknown] Topiramate [Topamax] 50 mg PO BID 03/29/18 [History Confirmed 03/30/18 Last Taken Unknown] metFORMIN [Glucophage] 1,000 mg PO BID 03/29/18 [History Confirmed 03/30/18 Last Taken 03/22/18] HYDROcodone/APAP 5/325MG 1 tab PO BID 03/30/18 [History Confirmed 03/30/18 Last Taken Unknown] Hydrocodone/APAP 7.5/325Mg 1 tab PO HS 03/30/18 [History Confirmed 03/30/18 Last Taken Unknown] Vitamin B-12 1,000 mcg PO DAILY 03/30/18 [History Confirmed 03/30/18 Last Taken Unknown] Medical - DS: Hosp Hospital course: 03/29 Patient reports for about the last month she's been having some trouble breathing. There has worsened since Monday. In addition during this time she' s had nausea with vomiting. She is throwing up her medications as she takes them, she is unable to keep food down. She's generally been able to keep down water and low but of other liquids. During this time she's felt feverish, has also had cold sweats. She is under several blankets, even though it was quite warm outside in order to stave off chills yesterday. The patient comes to the emergency department. Evaluation reveals white count 15,000, she had a pulse in the 90s, times respiratory rate of 33. Found to have significant pyuria and bacteriuria and is being admitted for treatment of acute cystitis. She meets criteria for sepsis with systemic inflammatory response syndrome and known infection. Her lactate is normal, this is not severe sepsis. 03/30 Patient feels better this afternoon. Able to keep most food down. Appetite starting to bulk picker. Blood cultures positive for gram-negative rods at 5:00 this morning. Urine culture positive for gram-negative rods 03/31 Appetite is better, all of her breakfast today. No fevers, no chills. Blood cultures from admission, still awaiting identification of species. Follow-up blood cultures from yesterday remain no growth to date. 04/01 Patient without complaints. Eating well, no nausea, no fever or chills. Urine and blood cultures positive for Escherichia coli. Follow-up blood cultures remain without growth. Plan to transition to oral antibiotics with ciprofloxacin, continue 2 weeks of therapy for gram-negative (Escherichia coli) bacteremia associated with acute cystitis and sepsis. She will be discharged today. Discharge diagnosis: Sepsis from E. coli acute cystitis with bacteremia Secondary discharge diagnosis: Type 2 diabetes mellitus Hypertension CKD, stage III, stable Dyspnea, improved with treatment of sepsis, no evidence of decompensated heart failure this admission - Time Spent with Patient Total time spent providing and/or coordinating discharge services: Greater than 30 minutes Medical - DS: Exam - Constitutional Vitals: Vital Signs Temp Pulse Resp BP BP Pulse Ox 04/01/18 07:03 98.1 F 87 16 97/66 97 04/01/18 03:23 97.8 F 84 18 118/74 93 04/01/18 00:00 98.1 F 76 17 112/69 94 03/31/18 18:57 97.7 F 75 24 H 116/74 95 03/31/18 16:00 96.7 F L 70 16 121/71 96 03/31/18 11:29 98.7 F 16 100/67 98 Intake and Output 03/31/18 04/01/18 04/01/18 21:59 05:59 13:59 Intake Total 600 / 600 200 / 200 240 / 240 Output Total 1150 / 1150 350 / 350 Balance -550 / -550 -150 / -150 240 / 240 Intake: Oral 600 / 600 200 / 200 240 / 240 Output: Void Amount 1150 / 1150 350 / 350 Other: Meal Dinner Breakfast Percent of Meal Consumed 80% 100% Feeding Ability Independent Independent # Voids 1 Weight 256 lb 1.6 oz Additional comments: General: In bed, no acute distress, awake, alert Chest: Clear, no rales, respirations unlabored Cardiovascular: Regular, no murmur, no gallop, no edema Abdomen: Soft, nontender Neuro: Alert, oriented 3, moves all extremities equally, nonfocal Medical - DS: Data Labs on day of discharge: Labs from last 24 hours 04/01/18 04/01/18 05:21 05:21 WBC 7.6 RBC 3.72 L Hgb 11.4 L Hct 34.4 L MCV 92.6 MCH 30.7 MCHC 33.2 RDW 13.8 Plt Count 317 MPV 7.9 Gran % 69.7 Lymph % (Auto) 21.6 [place] % (Auto) 6.4 Eos % (Auto) 1.7 Baso % (Auto) 0.6 Gran # 5.3 Lymph # (Auto) 1.6 [place] # (Auto) 0.5 Eos # (Auto) 0.1 Baso # (Auto) 0 Sodium 137 Potassium 4.0 Chloride 105 Carbon Dioxide 23 Anion Gap 9.0 BUN 18 Creatinine 1.2 H GFR Calculation 47 Glucose 212 H Calcium 8.2 L Microbiology 03/30/18 15:08 Blood Blood Culture - Preliminary NGTD at discharge 03/30/18 15:20 Blood Blood Culture - Preliminary NGTD at discharge 03/29/18 12:50 Urine - Clean Void Mid-Stream Urine Culture - Final Escherichia coli 03/29/18 13:23 Blood Blood Culture - Preliminary Gram negative bacillus--E. coli 03/29/18 13:16 Blood Blood Culture - Preliminary Gram negative bacillus--E. coli - Imaging and Cardiology Chest x-ray Additional comments: FINDINGS: The heart size, mediastinum and pulmonary vessels are unremarkable. The lungs are clear. There are no effusions. The bones and soft tissues are within normal limits. IMPRESSION: Normal chest. Medical - DS: A/P - Patient/Caregiver Discharge Instructions Activity: increase activity as tolerated Diet: Consistent Carbohydrate Additional Instructions: Begin taking ciprofloxacin (antibiotic) on 8/6 AM, finish prescription of 10 days. Prescriptions: Ciprofloxacin [Cipro] 500 mg PO BID #20 tab - Problem Maintenance (1) Sepsis Status: Resolved Qualifiers: Sepsis type: Escherichia coli Qualified Code(s): A41.51 - Sepsis due to Escherichia coli [E. coli] (2) Bacteremia due to Gram-negative bacteria Status: Resolved (3) Acute cystitis without hematuria Status: Resolved (4) Dyspnea Status: Resolved Qualifiers: Dyspnea type: unspecified Qualified Code(s): R06.00 - Dyspnea, unspecified (5) Chronic kidney disease (CKD), stage III (moderate) Status: Chronic (6) Diabetes 1.5, managed as type 2 Status: Chronic - Follow up Plan Follow up with: Nicholas Albert MD [Primary Care Provider] - (7-10 days) Disposition: Home, Self-Care Prognosis: Good Rehab Potential: Good Overall status at discharge: patient is back to baseline
== END 2018-04-01 12:40 | disposition home or self-care (01) | DRG 872 ==
LOC: ED 11:23 → MEDSUR 15:49
PROVIDERS: ADMIT Internal Medicine; ATTEND Internal Medicine